=== PATIENT | male | born 1975 | race Caucasian/White ===

== ENCOUNTER 2024-05-29 08:14 | Emergency (ER) | payer OTHER, SELFPAY ==
[2024-05-29 08:16] VITALS: BP 123/88
--- NOTE | 2024-05-29 08:33 | ED.GENMED ---
History of Present Illness
General
Chief Complaint: Abdominal Symptoms
Source: patient
Time Seen by Provider: 05/29/24 08:28
History of Present Illness
History of Present Illness:
48-year-old male presenting to the emergency department for evaluation of sudden onset right flank pain that began acutely at 5 AM associated with nausea and vomiting, pain described to be sharp localized to the right flank, constant, no
exacerbating or alleviating factors. Patient not take anything for symptoms prior to arrival. Denies any recent illnesses. No urinary symptoms or bowel changes. Social history noncontributory. Family history was noted for patient's daughter
having history of kidney stones.
Past History
Past History
ED Past Medical History: Hypercholesterolemia
ED Past Surgical History: Orthopedic
Social History
Tobacco: Non-smoker
Alcohol: Occasional
Drug: None
Personal:
Living: with family
Review of Systems
Review of Systems
All Other Systems: ROS reviewed and negative except as documented in HPI and ROS
Phy Exam
Physical Exam
Physical Exam:
GENERAL: Alert , patient appears quite uncomfortable
EYE: clear conjunctiva b/l
HEAD: NCAT
ENT: o/p clr, mmm.
CARDIAC: Regular rate and rhythm .
LUNGS: Clear breath sounds bilaterally, no acute respiratory distress, no wheezes/rales/rhonchi
ABDOMEN: Soft, without focal tenderness, no r/g, mild right CVA tenderness
NEUROLOGICAL: Alert and oriented
SKIN: Warm and dry, skin intact.
MUSCULOSKELETAL: well perfused.
PSYCH: Normal and appropriate interaction.
Scores
Heart Failure Risk
Heart Failure Risk Score: Not Applicable
Heart Score for Chest Pain Patients
STEMI patient?: Not applicable
Withdrawal Assessment of Alcohol
Withdrawal Assessment Completed?: Not applicable
Course
Orders/Labs/Results
Orders:
Orders
05/29/24 08:32
0.9% Sodium Chloride 1000 ml [Nss] 1,000 ml IV BOLUS
Ketorolac [Toradol] 30 mg IV NOW STA
Ondansetron Injectable [Zofran] 4 mg IV NOW STA
05/29/24 08:33
CT Abd/pel Without Iv Or Oral Urgent
Comment:
Reason For Exam: right flank pain
05/29/24 08:42
Complete Blood Count/With Diff Urgent
Comprehensive Metabolic Panel Urgent
Lipase Urgent
05/29/24 08:53
Morphine Sulfate 4 mg IV NOW STA
05/29/24 10:54
Urinalysis Reflex To Culture Urgent
Date Specimen was Collected: 05/29/24
Time Specimen was Collected: 08:35
Urine Microscopic Reflex Cult Urgent
Abnormal Lab Results
05/29/24 05/29/24
08:42 10:54
MPV 11.5 H fL
(7.4-10.4)
Glucose 167 H mg/dl
(70-99)
Total Bilirubin 2.1 H mg/dl
(0.2-1.3)
Ur Occult Blood Reflex 4+ A
(Negative)
Leukocyte Esterase Rfl Trace A
(Negative)
Urine RBC 80-90 A /HPF
(0-2)
05/29/24 08:42
05/29/24 08:42
Vital Signs
Initial and Last Documented VS:
Initial Vital Signs
Temp Pulse Resp BP Pulse Ox
98.1 F 70 18 123/88 97
05/29/24 08:16 05/29/24 08:16 05/29/24 08:16 05/29/24 08:16 05/29/24 08:16
Last Documented Vital Signs
Temp Pulse Resp BP Pulse Ox
98.5 F 50 16 127/80 98
05/29/24 10:29 05/29/24 10:29 05/29/24 10:29 05/29/24 10:29 05/29/24 10:30
MDM/Problems Addressed
Differential Diagnosis Includes:
Renal/ureteral colic, urinary tract infection, musculoskeletal etiology
MDM/Problems Addressed:
48-year-old male presenting to the emergency department for evaluation of sudden onset right flank pain that woke him up from sleep earlier this morning accompanied with nausea and vomiting. Patient endorses moderate to severe pain here and appears
quite uncomfortable. Based off of presentation and description I suspect renal/ureteral colic to be the most likely diagnosis. Labs, urine and CT imaging ordered. Toradol and Zofran for symptomatic relief. Disposition pending
*Radiology
Radiology exam reviewed: radiology read reviewed
*Pulse Oximetry
Patient hypoxic: no
*Critical Care Note
Total Time (30-74mins, 75-104mins- exclusive of procedures): Not Applicable
Patient Management
Escalation/DeEscalation of care consider admission/obs:
Patients CT scan shows an obstructive 4.5mm distal right ureteral stone with mild hydronephrosis and hydoureter. There is also a 2mm right intrarenal stone. Patients pain remains well controlled and he is tolerating PO. No signs of UTI. Patient will
be discharged home with naproxen, Percocet, Flomax and Zofran. Information for urology provided. Patient is otherwise stable for discharge home and aware of return precautions to the emergency department.
ED Attending Note
-
Portions of this chart may have been created with voice recognition software.� Occasional wrong word or��sound alike� substitutions may have occurred due to the inherent limitations of voice recognition software.
Discharge Plan
Departure
Patient Disposition: Home (Routine Discharge)
Date of Disposition: 05/29/24
Time of Disposition: 11:04
Patient with high blood pressure during this ER visit?: No
Discharge Problem:
Ureterolithiasis, Ureteral colic
Instructions: Kidney Stone, Adult ED
Prescriptions:
New
naproxen 500 mg tablet
500 mg PO BID PRN (Reason: Pain) Qty: 15 0RF
oxycodone-acetaminophen [Percocet] 5-325 mg tablet
1 tab PO Q6HPRN PRN (Reason: pain) Qty: 6 0RF
tamsulosin [Flomax] 0.4 mg capsule
0.4 mg PO DAILY Qty: 10 0RF
ondansetron 4 mg tablet,disintegrating
4 mg PO TIDPRN PRN (Reason: nausea/vomiting) Qty: 10 0RF
Referrals:
Ravi Aquino MD [Active] - (Urology)
Mahad Motley MD [Family Provider] -
Interventions
Interventions:
*Risk Screen - Suicide Last Done: 05/29/24 08:25
*General Assessment Last Done: 05/29/24 08:25
*Neglect/Abuse Screening Last Done: 05/29/24 08:25
ED- Fall Risk Assessment Last Done: 05/29/24 08:47
*ED COVID-19 Vaccine History Last Done: 05/29/24 08:25
*Nursing Disposition Last Done: 05/29/24 11:25
EM-Ldjcjb-Hjxolplokw Assessment Last Done: 05/29/24 08:47
Discharge Date and Time
Discharge Date/Time: 05/29/24 11:25
Print Language: CROATIAN
[2024-05-29 08:47] VITALS: BMI 26.2
[2024-05-29] MEDS: ZOFRAN 4 MG IV (08:48)
[2024-05-29] MEDS: TORADOL 30 MG IV (08:48)
[2024-05-29] MEDS: NSS 1000 IV (08:48)
[2024-05-29 08:54] LABS: % Basophils 0.4 % (0-2); % Eosinophils 2.6 % (0-6); % Immature Granulocytes 0.2 % (0-0.5); % Monocytes 8.6 % (1.7-9.3); % Neutrophils 57.2 % (42.2-75.2); Absolute Eosinophils 0.1 10^3/uL (0-0.7); Absolute Lymphocytes 1.7 10^3/uL (1.2-3.4); Absolute Monocytes 0.5 10^3/uL (0.1-0.6); Absolute Neutrophils 3.2 10^3/uL (1.4-6.5); Hematocrit 46.2 % (39.0-52.0); Hemoglobin 16.4 g/dL (13.0-18.0); Mean Corp Hgb Conc. 35.5 g/dL (33.0-37.0); Mean Corpuscular Hgb 29.4 pg (27.0-31.0); Mean Corpuscular Volume 82.9 fL (80.0-94.0); Mean Platelet Volume 11.5 fL (7.4-10.4); Nucleated Red Blood Cells % 0 % (-); Platelet Count 246 10^3/uL (130-400); Red Blood Cell Count 5.57 10^6/uL (4.70-6.10); Red Cell Dist. Width 12.6 % (11.5-14.5); White Blood Cell Count 5.5 10^3/uL (4.8-10.8)
[2024-05-29] MEDS: MORPHINE SULFATE 4 MG IV (08:56)
[2024-05-29 09:00] VITALS: BP 125/85
[2024-05-29 09:11] LABS: ALT (SGPT) 34 U/L (0-50); AST (SGOT) 30 U/L (17-59); Albumin 4.4 g/dl (3.5-5.0); Alkaline Phosphatase 70 U/L (38-126); Blood Urea Nitrogen 14 mg/dl (9-20); Calcium 9.4 mg/dl (8.4-10.2); Carbon Dioxide 26 mmol/L (22-30); Chloride 105 mmol/L (98-107); Glucose 167 mg/dl (70-99); Lipase 156 U/L (23-300); Potassium 4.5 mmol/L (3.5-5.1); Sodium 137 mmol/L (135-145); Total Bilirubin 2.1 mg/dl (0.2-1.3); Total Protein 6.6 g/dl (6.3-8.2); eGFR > 60.00
[2024-05-29 10:18] VITALS: BP 127/80
[2024-05-29 10:29] VITALS: BP 127/80
--- NOTE | 2024-05-29 10:29 | EDRN ---
Billy ROSADO currently at the pts bedside speaking with the pt
[2024-05-29 11:02] LABS: Urine Albumin Trace (Neg - Trace); Urine Bilirubin Negative (Negative); Urine Character Slightly Cloudy (Clear); Urine Color Amber; Urine Glucose Negative (Negative); Urine Ketone Negative (Negative); Urine Leukocyte Trace (Negative); Urine Nitrite Negative (Negative); Urine Occult Blood 4+ (Negative); Urine Urobilinogen Negative (Neg - 1+)
[2024-05-29 11:25] LABS: Urine Red Blood Cell 80-90 /HPF (0-2); Urine White Cell 0-2 /HPF (0-5)
== END 2024-05-29 11:25 | disposition home or self-care (01) ==
LOC: EMR 08:14
PROVIDERS: Physician Assistant Medical; EMERGENCY PHYSICIAN Emergency Medicine; FAMILY PHYSICIAN Family Medicine
DX: R11.2 Nausea with vomiting, unspecified (principal); R10.9 Unspecified abdominal pain; N13.2 Hydronephrosis with renal and ureteral calculous obstruction; E78.00 Pure hypercholesterolemia, unspecified; Z88.1 Allergy status to other antibiotic agents
CPT/HCPCS: 99284; 96374; 96375 ×2; 96361; 74176; 80053; 81003; 81015; 83690; 85025

== ENCOUNTER → 2024-06-24 09:07 | Outpatient (REF) | payer OTHER, SELFPAY | LOC: RAD 09:07 | PROVIDERS: ATTENDING PHYSICIAN Surgery; FAMILY PHYSICIAN Family Medicine | DX: N13.2 Hydronephrosis with renal and ureteral calculous obstruction (principal) | CPT/HCPCS: 74018 ==

== ENCOUNTER → 2025-05-13 06:46 | Outpatient (REF) | payer OTHER, SELFPAY | LOC: PAVMRI 06:46 | PROVIDERS: ATTENDING PHYSICIAN Nurse Practitioner; FAMILY PHYSICIAN Family Medicine | DX: M54.12 Radiculopathy, cervical region (principal) | CPT/HCPCS: 72141 ==

== ENCOUNTER → 2025-06-30 08:29 | Outpatient (REF) | payer OTHER, SELFPAY | LOC: RAD 08:29 | PROVIDERS: ATTENDING PHYSICIAN Family Medicine | DX: E04.1 Nontoxic single thyroid nodule (principal) | CPT/HCPCS: 76536 ==